=== PATIENT | male | born 1945 | race Caucasian/White ===

== ENCOUNTER 2020-03-12 11:48 | Day surgery (SDC) | payer MEDICARE, OTHER ==
[~2020-03-12] VITALS: Ht 165.1 cm; Wt 66.0 kg
[~2020-03-12 11:48] MED LIST: ASPI325; ASPI81CH PO; ATEN50; Atenolol25 MG PO; BUPR100; CLOP75 PO; FURO20; HYDACE5; ISOMON30; ISOMON60ER; LISI10; LISI5 PO; MEMA5TAB; METO50; OMEP20ER PO; POTCHL20ER; PRAV20; RIVA1.5; WARF5
[2020-03-12] MEDS ORDERED: LANS15EC PO (12:12)
[2020-03-12] MEDS ORDERED: ELIQUIS5 MG PO (12:12)
[2020-03-12] MEDS ORDERED: LIVALO4 MG PO (12:13)
[2020-03-12] MEDS ORDERED: NEBI10 PO (12:13)
[2020-03-12] MEDS ORDERED: ENTRESTO 24 MG1 EACH PO (12:13)
[2020-03-12] MEDS ORDERED: Amiodarone HCl200 MG PO (12:14)
--- NOTE | 2020-03-12 12:46 | NUR ---
PT STARTING TO WAKE, TALKING TO
--- NOTE | 2020-03-12 13:29 | NUR ---
PT VERBALIZED UNDERSTANDING OF D/C INSTRUCTIONS. PAPERWORK PROVIDED IN FOLDER. STEADY GAIT NOTED WHILE AMBULATING AROUND IN ROOM, GETS DRESSED WITH NO NEEDED ASSISTANCE. IV REMOVED FROM RAC WITH CATH INTACT, PRESSURE DRESSING APPLIED. HERE TO DRIVE HIM HOME. EKG COMPLETE PRIOR TO D/C, SHOWING SINUS BRADYCARDIA. NO ACUTE DISTRESS NOTED AT TIME OF DISCHARGE.
== END 2020-03-12 22:43 | disposition home or self-care (01) ==
LOC: MHTC 11:48
DX: I48.19 Other persistent atrial fibrillation (principal); I10 Essential (primary) hypertension; E78.00 Pure hypercholesterolemia, unspecified; Z79.899 Other long term (current) drug therapy; Z79.01 Long term (current) use of anticoagulants
CPT/HCPCS: 92960; 93005; 93010; J2704; J7030

== ENCOUNTER 2020-11-26 09:45 | Day surgery (SDC) | payer MEDICARE, OTHER ==
[~2020-11-26] VITALS: Ht 165.1 cm; Wt 63.6 kg
[~2020-11-26 09:45] MED LIST changes: +Amiodarone HCl200 MG PO; +ELIQUIS5 MG PO; +ENTRESTO 24 MG1 EACH PO; +LANS15EC PO; +LIVALO4 MG PO; +NEBI10 PO
[2020-11-26] MEDS ORDERED: ASPI81CH PO (10:29)
[2020-11-26] MEDS ORDERED: HYDCHL25 PO ×2 (10:30→10:31)
[2020-11-26] MEDS ORDERED: Isosorbide Mono30 MG PO (10:31)
[2020-11-26] MEDS ORDERED: NITR.4SL SL (10:32)
--- NOTE | 2020-11-26 14:35 | NUR ---
ASSUMED CARE OF PT. PT AWAKE AND ORIENTED, CONVERSING APPROPRIATELY; DENIES CHEST PAIN POST PROCEDURE. MONITOR SB 50'S, B/P 134/66, AFEBRILE, SPO2 98% RA. R GROIN NO SWELLING/HEMATOMA, SOME TRACK OOZING, MANUAL PRESSURE HELD FOR 10 MIN AND SITE INJECTED WITH 2% LIODCAINE WITH EPI PER DR KEENAN-TRACK OOZING RESOLVED. R GROIN SITE DRESSED WITH MARK AND TEGADERM DRSG, RLE 1+ PULES X 2.
--- NOTE | 2020-11-26 16:35 | NUR ---
PT HOB RAISED TO 15 DEGREES, SITE UNCHANGED.
--- NOTE | 2020-11-26 17:35 | NUR ---
PT SAT UP WITH [facility] AT 45 DEGREES, SITE UNCHANGED. PT TOOK LUNCH WITHOUT ISSUE.
--- NOTE | 2020-11-26 18:00 | NUR ---
PT UP TO BATHROOM, GAIT STEADY. R GROIN DRSG WITH SMALL AMT OF DRAINAGE POST ACTIVITY, R GROIN SITE REMAINS UNCHANGED. PT'S DRSG REMOVED, NO ACTIVE BLEEDING NOTED, MARK AND TEGADERM DRSG REPLACED. PT AMB IN RECOVERY ROOM NO NEW DRAINAGE NOTED ON DRSG, SITE UNCHANGED.
--- NOTE | 2020-11-26 18:15 | NUR ---
PT DRESSED SELF WITHOUT ISSUE, SITE UNCHANGED; IV REMOVED-CANNULA INTACT. PT RECEIVED DISCHARGE INSTRUCTIONS, MED LIST AND AFTER CARE INSTRUCTIONS; VERBALIZED GOOD UNDERSTANDING. PT LEFT FACILITY VIA W/C, CONDITION STABLE.
== END 2020-11-27 00:12 | disposition home or self-care (01) ==
LOC: MHTC 09:45
DX: I25.118 Atherosclerotic heart disease of native coronary artery with other forms of angina pectoris (principal); I25.2 Old myocardial infarction; Z95.1 Presence of aortocoronary bypass graft; Z95.5 Presence of coronary angioplasty implant and graft; Z79.01 Long term (current) use of anticoagulants; Z79.82 Long term (current) use of aspirin; Z88.8 Allergy status to other drugs, medicaments and biological substances
CPT/HCPCS: 76937; 85347; 93455; 93571; 99152; 99153; A9270; C1760; C1769; C1887; C1894; J1644; J2250; J3010; J7030; J7050; Q9967

== ENCOUNTER 2021-01-16 10:52 | Inpatient (IN) | payer MEDICARE, OTHER ==
[~2021-01-16] VITALS: Ht 177.8 cm; Wt 63.6 kg
[~2021-01-16 10:52] MED LIST changes: +HYDCHL25 PO; +Isosorbide Mono30 MG PO; +NITR.4SL SL
[2021-01-16 11:10] LABS: Chloride (POC) 106 mmol/L (98-108); Creatinine (POC) 1.3 mg/dL (0.8-1.3); Glucose (ISTAT POC) 141 mg/dL (70-99); Hemoglobin (POC) 12.9 g/dL (13.5-17.5); Potassium (POC) 3.3 mmol/L (3.5-5.5); Sodium (POC) 142 mmol/L (135-148); Total CO2 (POC) 18 mmol/L (21-32)
[2021-01-16 11:55] LABS: BASOPHILS ABSOLUTE AUTO 0.03 K/mm3 (0.00-0.23); BASOPHILS PERCENT AUTO 0 % (0-2); EOSINOPHILS ABSOLUTE AUTO 0.12 K/mm3 (0.00-0.68); EOSINOPHILS PERCENT AUTO 2 % (0-6); Hematocrit 38.6 % (37.0-53.0); Hemoglobin 12.5 g/dL (13.5-17.5); IMMATURE GRAN PERCENT AUTO 2 % (0-1); LYMPHOCYTES ABSOLUTE AUTO 2.72 K/mm3 (0.84-5.20); LYMPHOCYTES PERCENT AUTO 40 % (21-46); MONOCYTES ABSOLUTE AUTO 0.43 K/mm3 (0.16-1.47); MONOCYTES PERCENT AUTO 6 % (4-13); Mean Corpuscular HGB 29.3 pg (26.0-34.0); Mean Corpuscular HGB Conc 32.4 g/dL (31.5-36.5); Mean Corpuscular Volume 90 fL (80-100); Mean Platelet Volume 9.9 fL (9.1-12.4); NEUTROPHILS PERCENT AUTO 50 % (41-73); Platelet Count 272 K/mm3 (150-400); RDW Coefficient Variation 13.4 % (11.7-14.2); RDW Standard Deviation 44.6 fL (35.1-46.3); Red Blood Cell Count 4.27 M/mm3 (4.30-5.90)
[2021-01-16 12:05] LABS: Alanine Aminotransfer (ALT/SGP 39 U/L (12-78); Albumin, Blood 3.2 g/dL (3.4-5.0); Albumin/Globulin Ratio 0.9 (0.8-1.8); Alk Phos 112 U/L (50-136); Anion Gap 12 mmol/L (6-16); Aspartate Aminotrans (AST/SGOT 38 U/L (12-37); Bilirubin, Total 0.5 mg/dL (0.1-1.0); Blood Urea Nitrogen 25 mg/dL (8-24); Bun/Creatinine Ratio 19.7 (12.0-20.0); CO2, Blood 21 mmol/L (21-32); Calcium, Blood 9.1 mg/dL (8.5-10.1); Chloride, Blood 109 mmol/L (98-108); Creatinine, Blood 1.27 mg/dL (0.60-1.20); Globulin, Blood 3.7 g/dL (2.2-4.0); Glomerular Filtration Rate 55 (60-); Glucose, Blood 138 mg/dL (70-99); Potassium, Blood 3.4 mmol/L (3.5-5.5); Sodium, Blood 142 mmol/L (136-145); Total Protein, Blood 6.9 g/dL (6.4-8.2); Troponin I <0.015 ng/mL (0.000-0.040)
--- NOTE | 2021-01-16 13:06 | NUR ---
Patient taken to imaging for CT of chest and head via bed and monitor. RT assisting with portable ventilator. Patient then taken to ER . Full procedural report given to ER RNs x 2. Right groin site reviewed. Right groin site soft and nontender. dressing dry and intact. Three lumin catheter inatct t right groin. Patient remains on ventilator O2 sats at 100 @ 40 percent O2 per RT. Patient opens eyes occasionaly and extremities seem to jerk. Pulse to right foot 1 plus.
--- NOTE | 2021-01-16 13:17 | NUR ---
Cardiac Echo being done. O2 sats 100 percent. patient moving arms. Dr Sheriff here to see patient. Wrist restraints and ativan per CIGAR MAKING MACHINE SUPERVISOR. Ech procedure resume.
--- NOTE | 2021-01-16 13:52 | NUR ---
Echocardiogram completed.
--- NOTE | 2021-01-16 13:59 | NUR ---
Right groin site unchanged/stable. pedal and tibial pulses 1 plus. Patient resting easily now. O2 sats 100 percent. Vent settings not changed. Report to Yudi LIZ.
[2021-01-16 14:01] LABS: International Normalized Ratio 1.22
[2021-01-16 15:16] LABS: SARS-Cov-2 (COVID-19) PCR, MMC NEGATIVE (NEGATIVE)
[2021-01-16 15:40] LABS: BASOPHILS ABSOLUTE AUTO 0.03 K/mm3 (0.00-0.23); BASOPHILS PERCENT AUTO 0 % (0-2); EOSINOPHILS ABSOLUTE AUTO 0.01 K/mm3 (0.00-0.68); EOSINOPHILS PERCENT AUTO 0 % (0-6); Hematocrit 34.3 % (37.0-53.0); Hemoglobin 11.5 g/dL (13.5-17.5); IMMATURE GRAN ABSOLUTE AUTO 0.03 K/mm3 (0.00-0.10); IMMATURE GRAN PERCENT AUTO 0 % (0-1); LYMPHOCYTES ABSOLUTE AUTO 0.66 K/mm3 (0.84-5.20); LYMPHOCYTES PERCENT AUTO 7 % (21-46); MONOCYTES ABSOLUTE AUTO 0.45 K/mm3 (0.16-1.47); MONOCYTES PERCENT AUTO 5 % (4-13); Mean Corpuscular HGB 29.6 pg (26.0-34.0); Mean Corpuscular HGB Conc 33.5 g/dL (31.5-36.5); Mean Corpuscular Volume 88 fL (80-100); Mean Platelet Volume 9.8 fL (9.1-12.4); NEUTROPHILS ABSOLUTE AUTO 8.65 K/mm3 (1.96-9.15); NEUTROPHILS PERCENT AUTO 88 % (41-73); Platelet Count 250 K/mm3 (150-400); RDW Coefficient Variation 13.4 % (11.7-14.2); RDW Standard Deviation 43.6 fL (35.1-46.3); Red Blood Cell Count 3.88 M/mm3 (4.30-5.90); White Blood Cell Count 9.83 K/mm3 (4.00-11.30)
[2021-01-16 15:41] LABS: Source, Urine Catheter
[2021-01-16 15:46] LABS: Appearance, Urine Clear (Clear); Bilirubin, Urine Neg (Neg); Blood, Urine 1+ (Neg); Color, Urine Yellow (P-Yellow); Glucose Qualitative, Urine Neg (Neg); Ketones, Urine 1+ (Neg); Leukocyte Esterase, Urine Neg (Neg); Nitrite, Urine Neg (Neg); Protein, Urine Neg (Neg); Specific Gravity, Urine 1.005 (1.003-1.022); Urobilinogen, Urine NORM (Normal); pH, Urine 6.5 (5.0-8.0)
[2021-01-16 15:59] LABS: Anion Gap 6 mmol/L (6-16); Blood Urea Nitrogen 23 mg/dL (8-24); Bun/Creatinine Ratio 21.3 (12.0-20.0); CO2, Blood 25 mmol/L (21-32); Calcium, Blood 8.2 mg/dL (8.5-10.1); Chloride, Blood 108 mmol/L (98-108); Creatinine, Blood 1.08 mg/dL (0.60-1.20); Glomerular Filtration Rate >60 (60-); Glucose, Blood 130 mg/dL (70-99); Potassium, Blood 4.2 mmol/L (3.5-5.5); Sodium, Blood 139 mmol/L (136-145)
[2021-01-16 16:05] LABS: Red Blood Cells, Urine 0-2 /hpf (0-2); White Blood Cells, Urine 0-2 /hpf (0-5)
[2021-01-16 16:06] LABS: Bacteria Not Seen /hpf; Squamous Epithelial Cells Rare /hpf (Few)
--- NOTE | 2021-01-16 22:00 | NUR ---
PT ADMITTED TO ROOM ICU 14 FROM ED AT 2100 THIS EVENING. PT SLIDE TRANSFERRED TO BED. PT INTUBATED. TOLERATING THIS WELL WITH PROPOFOL AT 15 MCG/KG/MIN. PT IN NO APPARENT DISTRESS. RIGHT GROIN SITE WITHOUT S/S HEMATOMA OR OOZING. WILL REVEIW CHART AND PLAN OF CARE FOR THIS PT.
[2021-01-16 23:20] LABS: PCO2 Arterial 30.9 mmHg (35-45); PO2 Arterial 103 mmHg (80-100); pH Blood Arterial 7.49 (7.35-7.45)
--- NOTE | 2021-01-17 01:00 | NUR ---
HAVE TITRATED PROPOFOL TO 25 MCG/KG/MIN SECONDARY TO PT BECOMING RESTLESS WITH VENT. SMALL AMOUNT OF SECRETIONS SUCTIONED FROM ETT. PT HAS TOLERATED TURNS IN BED. WILL CONTINUE TO MONITOR.
[2021-01-17 06:23] LABS: BASOPHILS ABSOLUTE AUTO 0.04 K/mm3 (0.00-0.23); BASOPHILS PERCENT AUTO 0 % (0-2); EOSINOPHILS ABSOLUTE AUTO 0.14 K/mm3 (0.00-0.68); EOSINOPHILS PERCENT AUTO 2 % (0-6); Hematocrit 33.2 % (37.0-53.0); Hemoglobin 11.4 g/dL (13.5-17.5); IMMATURE GRAN ABSOLUTE AUTO 0.02 K/mm3 (0.00-0.10); IMMATURE GRAN PERCENT AUTO 0 % (0-1); LYMPHOCYTES ABSOLUTE AUTO 0.87 K/mm3 (0.84-5.20); LYMPHOCYTES PERCENT AUTO 10 % (21-46); MONOCYTES ABSOLUTE AUTO 0.53 K/mm3 (0.16-1.47); MONOCYTES PERCENT AUTO 6 % (4-13); Mean Corpuscular HGB Conc 34.3 g/dL (31.5-36.5); Mean Corpuscular Volume 87 fL (80-100); Mean Platelet Volume 9.6 fL (9.1-12.4); NEUTROPHILS ABSOLUTE AUTO 7.39 K/mm3 (1.96-9.15); NEUTROPHILS PERCENT AUTO 82 % (41-73); Platelet Count 234 K/mm3 (150-400); RDW Coefficient Variation 13.7 % (11.7-14.2); RDW Standard Deviation 43.8 fL (35.1-46.3); White Blood Cell Count 8.99 K/mm3 (4.00-11.30)
--- NOTE | 2021-01-17 06:30 | NUR ---
PT CURRENTLY SEDATED WITH 30 MCG'S/KG/MIN PROPOFOL. REMAINS IN SINUS HERMINIA. VSS. HAS REMAINED WITH TEMPERATURE AT OR BELOW 98.6 DIRECTED BY MD. NO ARRHYTHMIAS TO NOTE. WILL CONTINUE TO MONITOR PT, AND WILL REPORT OFF TO ONCOMING RN.
[2021-01-17 06:55] LABS: Alanine Aminotransfer (ALT/SGP 38 U/L (12-78); Albumin, Blood 2.9 g/dL (3.4-5.0); Albumin/Globulin Ratio 0.9 (0.8-1.8); Alk Phos 89 U/L (50-136); Anion Gap 7 mmol/L (6-16); Aspartate Aminotrans (AST/SGOT 47 U/L (12-37); Bilirubin, Total 0.8 mg/dL (0.1-1.0); Blood Urea Nitrogen 22 mg/dL (8-24); CO2, Blood 25 mmol/L (21-32); Calcium, Blood 8.6 mg/dL (8.5-10.1); Chloride, Blood 108 mmol/L (98-108); Creatinine, Blood 1.05 mg/dL (0.60-1.20); Globulin, Blood 3.3 g/dL (2.2-4.0); Glomerular Filtration Rate >60 (60-); Glucose, Blood 90 mg/dL (70-99); Magnesium, Blood 2.6 mg/dL (1.6-2.4); Potassium, Blood 3.7 mmol/L (3.5-5.5); Sodium, Blood 140 mmol/L (136-145); Total Protein, Blood 6.2 g/dL (6.4-8.2)
--- NOTE | 2021-01-17 07:15 | NUR ---
TRANSFER OF CARE, REPORT FROM DREAD LIZ
--- NOTE | 2021-01-17 08:05 | NUR ---
DR ROLDAN ROUNDED WITH RESIDENT, PROPOFOL STOPPED, SPONTANEOUS SETTING ON NOW, HELD LISINOPRIL AND LOPRESSORE FOR HEART RATE 54, SBP 96
--- NOTE | 2021-01-17 08:36 | NUR ---
PATIENT RESPONDING APPROPRIATELY, DR WALTER ASSESSED PATIENT, TO BE EXTUBATED
--- NOTE | 2021-01-17 09:09 | NUR ---
extubated at 0900, rt daniel pierce at bedside, no complications, no respiratory distress, patient has answered yes and no, called for a update, dentures to be brought in
--- NOTE | 2021-01-17 09:56 | NUR ---
01/16/21 Introduction: Sanding Machine Operator Or Tender recieved request from ED for family for emotional support and prayer. Assessment: Pt was in ED being treated for a heart attack while spouse was crying in waiting area. Spouse of pt asked for prayer immedietly upon approacing waiting area. Spouse of pt tearfullly explained what happened to pt at their home in the yard. Spouse of pt was informed during visit that the provider had an update and would like to speak with her. 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 Intervention: Cultivated a relationship of care and support. Explored spiritual and emotional support. Provided prayer according to pt and spouse lily background. As family and friends arrived, I left and came back later to check up with pt and Spouse of pt. Outcome: Spouse of pt expressed gratitude for Sanding Machine Operator Or Tender support and prayer. Follow up: Follow up for emotional and spiritual support as needed or requested.
--- NOTE | 2021-01-17 14:39 | NUR ---
TELE BOX APPLIED AND VERIFIED WITH TELEPHONE SALES REPRESENTATIVE. A FLUTTER WITH HR AT 87 CURRENTLY.
--- NOTE | 2021-01-17 14:54 | NUR ---
IO REMOVED, NO COMPLICATIONS, PATIENT TRANSFERED TO [facility], REPORT TO SALONI SHEPPARD
--- NOTE | 2021-01-17 15:02 | NUR ---
ARRIVED FROM ICU VIA BED, PT ABLE TO SCOOT HIMSELF TO BED, A&OX4, DENIES ANY PAIN, IO ON LLE REMOVED BY CODE NUMBER STAMPER, CONT. TO MONITOR FOR ANY CHANGES.
[2021-01-17 15:12] LABS: Anion Gap 7 mmol/L (6-16); Blood Urea Nitrogen 19 mg/dL (8-24); Bun/Creatinine Ratio 18.8 (12.0-20.0); CO2, Blood 26 mmol/L (21-32); Calcium, Blood 8.7 mg/dL (8.5-10.1); Chloride, Blood 107 mmol/L (98-108); Creatinine, Blood 1.01 mg/dL (0.60-1.20); Glomerular Filtration Rate >60 (60-); Glucose, Blood 80 mg/dL (70-99); Potassium, Blood 3.8 mmol/L (3.5-5.5); Sodium, Blood 140 mmol/L (136-145)
[2021-01-17 15:32] LABS: BASOPHILS ABSOLUTE AUTO 0.04 K/mm3 (0.00-0.23); BASOPHILS PERCENT AUTO 0 % (0-2); EOSINOPHILS ABSOLUTE AUTO 0.09 K/mm3 (0.00-0.68); EOSINOPHILS PERCENT AUTO 1 % (0-6); Hematocrit 38.2 % (37.0-53.0); Hemoglobin 12.6 g/dL (13.5-17.5); IMMATURE GRAN ABSOLUTE AUTO 0.04 K/mm3 (0.00-0.10); IMMATURE GRAN PERCENT AUTO 0 % (0-1); LYMPHOCYTES ABSOLUTE AUTO 1.09 K/mm3 (0.84-5.20); LYMPHOCYTES PERCENT AUTO 11 % (21-46); MONOCYTES ABSOLUTE AUTO 0.74 K/mm3 (0.16-1.47); MONOCYTES PERCENT AUTO 7 % (4-13); Mean Corpuscular HGB 29.2 pg (26.0-34.0); Mean Corpuscular Volume 89 fL (80-100); Mean Platelet Volume 9.7 fL (9.1-12.4); NEUTROPHILS ABSOLUTE AUTO 8.12 K/mm3 (1.96-9.15); NEUTROPHILS PERCENT AUTO 80 % (41-73); Platelet Count 234 K/mm3 (150-400); RDW Coefficient Variation 13.5 % (11.7-14.2); RDW Standard Deviation 44.2 fL (35.1-46.3); Red Blood Cell Count 4.31 M/mm3 (4.30-5.90); White Blood Cell Count 10.12 K/mm3 (4.00-11.30)
--- NOTE | 2021-01-17 16:39 | NUR ---
CENTRAL LINE DC'D, PRESSURE HELD FOR 10 MINS, GAUZE AND OPSITE DSG APPLIED, PT TOLERATED WELL, CATH INTACT.
--- NOTE | 2021-01-17 18:37 | NUR ---
EATING DINNER, DENIES ANY PAIN OR ANY DISCOMFORT, R GROIN DSG C/D/I, TOLERATING REGULAR DINNER WELL, NO ACUTE CHANGES THIS SHIFT.
--- NOTE | 2021-01-18 03:44 | NUR ---
SHIFT SUMMARY PT RESTED INTERMITTENTLY T/O NIGHT. CONFUSED AT TIMES/COOPERATIVE WITH CARE. RIGHT FEMORAL SITE C/D/I. TELEMETRY IN PLACE, NSR WITH PACs 60s TO 80s T/O NIGHT PER TELEMETRY. ELEVATED BP THIS AM, HYDRALAZINE GIVEN, WILL CONTINUE TO MONITOR CLOSELY. LONG SECURE WITH DARK YELLOW URINE OUT. BED ALARM ON FOR SAFETY. PT CURRENTLY RESTING IN BED WITH EYES CLOSED + CALL LIGHT IN REACH.
[2021-01-18 05:05] LABS: BASOPHILS ABSOLUTE AUTO 0.03 K/mm3 (0.00-0.23); BASOPHILS PERCENT AUTO 0 % (0-2); EOSINOPHILS ABSOLUTE AUTO 0.19 K/mm3 (0.00-0.68); EOSINOPHILS PERCENT AUTO 2 % (0-6); Hematocrit 35.5 % (37.0-53.0); Hemoglobin 12.1 g/dL (13.5-17.5); IMMATURE GRAN ABSOLUTE AUTO 0.03 K/mm3 (0.00-0.10); IMMATURE GRAN PERCENT AUTO 0 % (0-1); LYMPHOCYTES ABSOLUTE AUTO 0.88 K/mm3 (0.84-5.20); LYMPHOCYTES PERCENT AUTO 11 % (21-46); MONOCYTES PERCENT AUTO 6 % (4-13); Mean Corpuscular HGB 29.6 pg (26.0-34.0); Mean Corpuscular HGB Conc 34.1 g/dL (31.5-36.5); Mean Corpuscular Volume 87 fL (80-100); Mean Platelet Volume 9.6 fL (9.1-12.4); NEUTROPHILS ABSOLUTE AUTO 6.67 K/mm3 (1.96-9.15); NEUTROPHILS PERCENT AUTO 80 % (41-73); Platelet Count 234 K/mm3 (150-400); RDW Coefficient Variation 13.4 % (11.7-14.2); RDW Standard Deviation 42.7 fL (35.1-46.3); Red Blood Cell Count 4.09 M/mm3 (4.30-5.90)
[2021-01-18 06:02] LABS: Anion Gap 7 mmol/L (6-16); Blood Urea Nitrogen 22 mg/dL (8-24); CO2, Blood 25 mmol/L (21-32); Calcium, Blood 8.5 mg/dL (8.5-10.1); Chloride, Blood 108 mmol/L (98-108); Glomerular Filtration Rate >60 (60-); Glucose, Blood 95 mg/dL (70-99); Magnesium, Blood 2.2 mg/dL (1.6-2.4); Phosphorus, Blood 2.6 mg/dL (2.5-4.9); Potassium, Blood 3.5 mmol/L (3.5-5.5); Sodium, Blood 140 mmol/L (136-145)
[2021-01-18 06:21] LABS: Troponin I 0.539 ng/mL (0.000-0.040)
[2021-01-18] MEDS ORDERED: ACET325 PO (11:02)
[2021-01-18] MEDS ORDERED: Amiodarone HCl200 MG PO (11:03)
[2021-01-18] MEDS ORDERED: FAMO20 PO (11:04)
[2021-01-18] MEDS ORDERED: VISBIOME 112.51 EACH PO (11:06)
[2021-01-18] MEDS ORDERED: AZIT500 PO (11:07)
[2021-01-18] MEDS ORDERED: PANT20 PO (11:08)
[2021-01-18] MEDS ORDERED: CEFP200 PO (11:08)
[2021-01-18] MEDS ORDERED: HYDR10 PO (11:10)
[2021-01-18] MEDS ORDERED: LISI5 PO (11:11)
[2021-01-18] MEDS ORDERED: METO25 PO (11:11)
[2021-01-18] MEDS ORDERED: ONDA4ODT MM (11:12)
[2021-01-18] MEDS ORDERED: XARELTO20 MG PO (11:13)
--- NOTE | 2021-01-18 13:24 | NUR ---
DISCHARGE SUMMARY PATIENT CONFUSED AT BASELINE PER . TOLERATING PO FOOD AND FLUIDS. ETHAN SCHWARZT'Angel Luis WNL. VOIDING. DISCHARGE ORDER OBTAINED FROM HOSPITALIST AND CARDIOLOGY. DISCHARGE EDUCATION GIEN TO . PATIENT LEFT UNIT AT 1300 VIA WHEELCHAIR FOR HOME.
== END 2021-01-18 13:12 | disposition home or self-care (01) | DRG 280 ==
LOC: ER 10:52 → SURS 11:15 → ICUW 11:19 → SURS 01-17 14:11
PROVIDERS: Emergency Medicine; Family Medicine; Internal Medicine Critical Care Medicine; ADMIT Internal Medicine Cardiovascular Disease
PROC: 4A023N7 Measurement of Cardiac Sampling and Pressure, Left Heart, Percutaneous Approach (ICD-10-PCS; principal; 2021-01-16)
PROC: B2111ZZ Fluoroscopy of Multiple Coronary Arteries using Low Osmolar Contrast (ICD-10-PCS; 2021-01-16)
PROC: B2131ZZ Fluoroscopy of Multiple Coronary Artery Bypass Grafts using Low Osmolar Contrast (ICD-10-PCS; 2021-01-16)
PROC: 5A2204Z Restoration of Cardiac Rhythm, Single (ICD-10-PCS; 2021-01-16)
PROC: 5A1935Z Respiratory Ventilation, Less than 24 Consecutive Hours (ICD-10-PCS; 2021-01-16)
DX: I21.29 ST elevation (STEMI) myocardial infarction involving other sites (principal); J96.01 Acute respiratory failure with hypoxia; I49.01 Ventricular fibrillation; I46.2 Cardiac arrest due to underlying cardiac condition; J18.9 Pneumonia, unspecified organism; I25.810 Atherosclerosis of coronary artery bypass graft(s) without angina pectoris; Z20.822 Contact with and (suspected) exposure to COVID-19; I25.10 Atherosclerotic heart disease of native coronary artery without angina pectoris; I48.0 Paroxysmal atrial fibrillation; I10 Essential (primary) hypertension; R07.89 Other chest pain; I08.0 Rheumatic disorders of both mitral and aortic valves; K21.9 Gastro-esophageal reflux disease without esophagitis; E78.00 Pure hypercholesterolemia, unspecified; Z88.8 Allergy status to other drugs, medicaments and biological substances; Z79.899 Other long term (current) drug therapy; Z79.01 Long term (current) use of anticoagulants; Z79.82 Long term (current) use of aspirin
CPT/HCPCS: 31500; 31720; 36415; 36556; 36600; 51702; 70450; 71045; 71260; 76937; 80047; 80048; 80053; 81001; 82803; 82947; 83735; 84100; 84484; 85014; 85025; 85347; 85610; 85730; 86141; 92953; 93005; 93010; 93306; 93459; 94002; 94003; 96374-59; 96375-59; 99285-25; A9270; C1751; C1760; C1769; C1894; J0330; J0360; J0461; J1265; J1644; J1650; J2060; J2175; J2250; J2270; J2405; J2704; J3010; J3475; J7030; J7050; J7060; J7120; Q9967; U0004